=== PATIENT | female | born 1965 | race Caucasian/White ===

== ENCOUNTER 2017-11-26 21:57 | Emergency (ER) | payer OTHER ==
[~2017-11-26] VITALS: Ht 162.6 cm; Wt 85.7 kg
[~2017-11-26 21:57] MED LIST: ALDACTONE25 MG; ATORVASTATIN CA20 MG; CHLORTHALIDONE25 MG; FELODIPINE 5 MG5 M1; FISH OIL 1,0001 EAC5; FLUOXETINE HCL20 M1; K-DUR10 MEQ PO; LIPITOR20 MG; POTASSIUM99 M1; PROZAC40 MG; XANAX 0.25 MG0.25 MG
[2017-11-26 22:34] LABS: ABSOLUTE LYMPHOCYTES 2.7 thou/uL (0.8-5.3); ABSOLUTE MONOCYTES 0.7 thou/uL (0.0-1.2); ABSOLUTE NEUTROPHILS 5.2 thou/uL (1.6-8.1); BASOPHILS 0.2 %; EOSINOPHILS 0.2 %; HEMATOCRIT 45.9 % (37.0-47.0); MCH 33.6 pg (26.0-34.0); MCHC 34.8 g/dL (28.0-37.0); MCV 96.5 fL (80.0-100.0); MONOCYTES 8.4 %; MPV 8.9 fl. (7.2-11.1); NUCLEATED RBCS 0 /100WBC; PLATELET COUNT* 309 thou/uL (150-400); POLYS 60.2 %; RBC 4.76 mil/uL (4.20-5.00); RDW-CV 13.4 % (10.5-14.5); WBC 8.7 thou/uL (4.0-11.0)
[2017-11-26 22:45] LABS: ANION GAP 13 mmol/L (7-16); BUN 7 mg/dL (7-18); CALCIUM 9.8 mg/dL (8.5-10.1); CHLORIDE 93 mmol/L (98-107); CO2 26 mmol/L (21-32); CREATININE 0.9 mg/dL (0.6-1.3); GLUCOSE 126 mg/dL (70-99); SODIUM 132 mmol/L (136-145)
[2017-11-26 22:47] LABS: POTASSIUM 2.9 mmol/L (3.5-5.1)
[2017-11-26 22:55] LABS: ALBUMIN 4.5 g/dL (3.4-5.0); ALKALINE PHOSPHATASE 81 U/L (46-116); LIPASE 107 U/L (73-393); NT-PRO BRAIN NAT PEPTIDE 98 pg/mL (<300); SGOT 51 U/L (15-37); SGPT 76 U/L (30-65); TOTAL BILIRUBIN 0.6 mg/dL (<0.1-1.0); TROPONIN-I LEVEL <0.06 ng/mL (<0.06)
[2017-11-26 23:28] LABS: PROTIME 10.6 Seconds (9.20-11.50)
[2017-11-27 00:34] LABS: URINE BILIRUBIN NEGATIVE (Negative); URINE BLOOD NEGATIVE (Negative); URINE CLARITY CLEAR; URINE COLOR YELLOW; URINE GLUCOSE-RANDOM NEGATIVE (Negative); URINE KETONES NEGATIVE (Negative); URINE LEUKOCYTES-REFLEX NEGATIVE (Negative); URINE NITRITE-REFLEX NEGATIVE (Negative); URINE PROTEIN NEGATIVE (Negative); URINE SPECIFIC GRAVITY <= 1.005 (1.005-1.030); URINE UROBILINOGEN 0.2 E.U./dl (0.2-1.0)
[2017-11-27 00:43] LABS: AMP/METHAMP Negative (Negative); BARBITURATES Negative (Negative); BENZODIAZEPINES POSITIVE (Negative); COCAINE Negative (Negative); METHADONE Negative (Negative); OPIATES Negative (Negative); PCP Negative (Negative); THC Negative (Negative)
[2017-11-27] MEDS ORDERED: TRAMADOL 50 MG50 MG PO (01:40)
[2017-11-27] MEDS ORDERED: ONDANSETRON HCL4 M2 PO (01:41)
[2017-11-27 02:01] VITALS: BP 135/78
--- NOTE | 2017-11-27 13:56 | EKG ---
[place] [address] ELECTROCARDIOGRAM REPORT Name: FAVIO SCHAEFFER Room: 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
== END 2017-11-27 02:02 | disposition home or self-care (01) ==
LOC: M.ERS 21:57
PROVIDERS: Emergency Medicine
DX: F19.939 Other psychoactive substance use, unspecified with withdrawal, unspecified (principal); R19.7 Diarrhea, unspecified; I10 Essential (primary) hypertension; E78.5 Hyperlipidemia, unspecified; Z90.10 Acquired absence of unspecified breast and nipple; F32.9 Major depressive disorder, single episode, unspecified; F41.9 Anxiety disorder, unspecified

== ENCOUNTER → 2019-12-24 | Outpatient (CLI) | payer OTHER ==
[~2019-12-24] MED LIST changes: +ONDANSETRON HCL4 M2 PO; +TRAMADOL 50 MG50 MG PO
== END ==
LOC: M.ULTRA
PROVIDERS: ATTEND Family Medicine
DX: I70.202 Unspecified atherosclerosis of native arteries of extremities, left leg (principal); I70.291 Other atherosclerosis of native arteries of extremities, right leg; L81.9 Disorder of pigmentation, unspecified

== ENCOUNTER → 2020-05-24 | Outpatient (CLI) | payer OTHER | LOC: M.ULTRA 07:32 | PROVIDERS: ATTEND Family Medicine | DX: K76.0 Fatty (change of) liver, not elsewhere classified (principal); R74.8 Abnormal levels of other serum enzymes ==